=== PATIENT | male | born 2000 | race Caucasian/White ===

== ENCOUNTER 2020-02-01 09:08 | Emergency (ER) | payer OTHER ==
[~2020-02-01] VITALS: Ht 185.4 cm; Wt 131.8 kg
[2020-02-01 09:16] VITALS: BP 129/89; TEMP 98.9
[2020-02-01 10:31] VITALS: PULSE 88
== END 2020-02-01 10:07 | disposition home or self-care (01) ==
LOC: COL.ER 09:08
DX: L50.9 Urticaria, unspecified (principal); F32.9 Major depressive disorder, single episode, unspecified

== ENCOUNTER → 2020-03-23 | Outpatient (CLI) | payer OTHER | LOC: COL.LAB 13:43 | DX: Z20.828 Contact with and (suspected) exposure to other viral communicable diseases (principal) ==